=== PATIENT | male | born 1955 | race Asian ===

== ENCOUNTER 2017-09-29 06:59 | Emergency (ER) | payer MEDICAID ==
[~2017-09-29] VITALS: Ht 170.2 cm; Wt 60.3 kg
[2017-09-29 07:18] VITALS: Ht 170.2 cm; Wt 60.3 kg
[2017-09-29 09:02] VITALS: BP 123/61
== END 2017-09-29 09:16 | disposition home or self-care (01) ==
LOC: ED 06:59
DX: R33.9 Retention of urine, unspecified (principal); R10.30 Lower abdominal pain, unspecified

== ENCOUNTER 2017-09-29 18:10 | Emergency (ER) | payer MEDICAID ==
[~2017-09-29] VITALS: Ht 165.1 cm; Wt 59.9 kg
[2017-09-29 18:14] VITALS: Ht 165.1 cm; Wt 59.9 kg
[2017-09-29 21:20] VITALS: BP 140/82
== END 2017-09-29 21:20 | disposition home or self-care (01) ==
LOC: ED 18:10
DX: R33.9 Retention of urine, unspecified (principal); Z46.6 Encounter for fitting and adjustment of urinary device